=== PATIENT | male | born 1950 | race Caucasian/White ===

== ENCOUNTER 2018-09-22 06:51 | Day surgery (SDC) | payer MEDICARE ==
[~2018-09-22] VITALS: Ht 167.6 cm; Wt 85.7 kg
[2018-09-22] VITALS (16 sets, daily range): BP systolic 108–142; BP diastolic 60–74; PULSE 62–68; RESP 14–17; Ht 167.6 cm; Wt 85.7 kg
[2018-09-22] MEDS ORDERED: GLIM4TAB PO (07:31)
[2018-09-22] MEDS ORDERED: METF100010 PO (07:32)
[2018-09-22] MEDS ORDERED: ATOR20TA38 PO (07:32)
[2018-09-22] MEDS ORDERED: CARV25TA79 PO (07:33)
[2018-09-22] MEDS ORDERED: BENA40TA56 PO (07:33)
[2018-09-22] MEDS ORDERED: DAPA10TA PO (07:34)
[2018-09-22] MEDS ORDERED: GEMF600T8 PO (07:34)
[2018-09-22] MEDS ORDERED: ASPI81TA52 PO (07:34)
[2018-09-22] MEDS ORDERED: FAMOTIDINE 20 MG TAB PO SCH (08:00)
[2018-09-22] MEDS ORDERED: DIPHENHYDRAMINE 50 MG CAP PO SCH (08:00)
[2018-09-22] MEDS ORDERED: SOD CHLORIDE 0.45% 1,000 ML IV SCH (08:00)
[2018-09-22] MEDS ORDERED: DIAZEPAM 5 MG TAB PO SCH (08:00)
[2018-09-22] MEDS ORDERED: IODIXANOL LOCM 100 ML BTL ONE (09:05)
[2018-09-22] MEDS ORDERED: MIDAZOLAM 1 MG/ML 2 ML INJ ONE (09:05)
[2018-09-22] MEDS ORDERED: FENTAnyl 50 MCG/ML VIAL ONE (09:06)
[2018-09-22] MEDS ORDERED: SOD CHLORIDE 0.9% 500 ML ONE (11:08)
--- NOTE | 2018-09-22 11:19 | SIPON ---
Date/Time of Note Date/Time of Note DATE: 09/22/18 TIME: 11:18 Operative Report Preoperative Diagnosis 1.chest pain 2.cardiomyopathy 3.abnl mpi Postoperative Diagnosis 1.obstructive cad multivessel Operation/Procedure Performed 1.[facility] Surgeon see signature line social worker assistant Khoi Anesthesia: moderate sedation Estimated blood loss: minimal Transfusion Required none Specimen none Grafts/Implants none Complications none BUSTER COKER Sep 22, 2018 11:19
[2018-09-22] MEDS ORDERED: ONDANSETRON 4 MG INJ IV PRN (11:30)
[2018-09-22] MEDS ORDERED: morphine 2 MG INJ IV PRN (11:30)
[2018-09-22] MEDS ORDERED: ACETAMINOPHEN 325 MG TAB PO PRN (11:30)
[2018-09-22] MEDS ORDERED: AL HYDROX/MG HYDROX/SIMETH 30 ML CUP PO PRN (11:30)
[2018-09-22] MEDS ORDERED: SOD CHLORIDE 0.9% 1,000 ML IV SCH (12:30)
--- NOTE | 2018-09-22 16:01 | CARRPT ---
DATE OF PROCEDURE: 09/22/2018 TYPE OF PROCEDURES: 1. Left heart catheterization. 2. Coronary angiography. 3. Bypass graft angiography including RODARTE arterial graft. 4. Measurement of left ventricular end-diastolic pressure. 5. Aortic root angiography. 6. Femoral angiography. 7. Perclose closure device to right femoral artery. ATTENDING PHYSICIAN: Buster Melissa MD REFERRING PHYSICIAN: Guilherme Hernandez MD INDICATIONS: Chest pain, cardiomyopathy, severely depressed left ventricular ejection, history of CA BG, positive stress test findings. TYPE OF ANESTHESIA: Conscious local. BRIEF HISTORY AND HOSPITAL COURSE: Mr. Mo Brown is a 68-year-old male with a history of hyp ertension, dyslipidemia, coronary artery disease, status post coronary artery bypass graft surgery 20 years prior, history of stents, who presented with complaints of shortness of breath and was found t o have severely depressed left ventricular ejection fraction. The patient subsequently underwent car diac stress test revealing multivessel ischemia and the patient has now been thus referred for left h eart catheterization to assess the possibility of significant obstructive coronary artery disease sonya ding to symptoms of chest pain and subsequent positive stress test findings. DESCRIPTION OF PROCEDURE: After informed consent was obtained, the patient was brought to the [facility] cardiac catheterization lab where his right femoral artery was prepped and catherine ped in sterile fashion. A 2% lidocaine was infiltrated into the right femoral artery in order to ach ieve adequate anesthesia. Using the modified Seldinger technique, the right femoral artery was cannu lated and a 6-Indian arterial sheath was placed. A 6-Indian JL4 catheter was used to cannulate the l eft main coronary ostium. With contrast injection, multiple views of the left coronary arterial syst em were obtained. JL4 was removed over a guidewire and a JR4 was used to cannulate the right coronar y arterial ostium. With contrast injection, multiple views of the right coronary system was obtained . JR4 was then used to sequentially cannulate a saphenous vein graft to diagonal, saphenous vein gra ft stump presumed to LAD and then RODARTE as well as SARA. It was then removed and we used a multipurpo se to try and identify any further right graft unsuccessfully and then tried an LCB to identify any f urther grafts unsuccessfully. We then passed a pigtail in descending aorta into the ascending aorta placed in LV. LVEDP was measured and pullback across the aortic valve to assess for significant grad ient, which there was not and remained in the root. At this time, we did an aortic root angiography to further identify any evidence of further grafts which did not identify any further grafts and was removed. Subsequently, a right femoral arterial angiogram was obtained revealing the sheath to be we ll placed in the right common femoral artery and was removed. Subsequently, Perclose device was used to seal the vessel. This completed the procedure. There were no complications. FINDINGS: Left main is 4 mm, no significant focal stenoses. Circumflex proximally is a 3 mm vessel, has a long zone of occlusion up to approximately 90% and then target. It does appear to be in competitive flow in the distal portion of the vessel, not clear if this is from stump of graft as we are not able to identify an anterograde limb to this. The LAD proximally is a 3 mm vessel and has a long stented zone with appears to be likely 100% occluded with possible left collateral flow filling the distal LAD versus a 99% subtotally occluded. There is a proximal branching diagonal sub 2 mm ve ssel with an ostial 80% stenosis. The right coronary artery proximally is a 3.5 mm vessel and has a very focal 80% stenosis in its ostial portion. In midportion of vessel, there is another 60% to 70% stenosis. It is a dominant vessel and gives off a PDA, sub 2 mm vessel with diffuse disease up to ap proximately 70% to 80% in proximal portion and then a posterolateral branch 2 mm with a disease in pr oximal portion approximately 60%. Bypass graft angiography: This revealed the patient to have a widely patent saphenous vein graft sup plying the diagonal and stump presumably to the circumflex system. The patient's RODARTE was injected a nd does not appear to be anastomosed anything. It appears small, atretic appearing, although it does follow some clips in line but not clearly sutured to any vessel. The SARA was a very sizable vessel not used as a previous conduit. Femoral angiography revealed the patient's sheath to be well placed in the right common femoral arter y with no significant peripheral vascular disease there. TOTAL FLUOROSCOPY TIME: 18.8 minutes. TOTAL CONTRAST: 230 mL. IMPRESSION: 1. Multivessel obstructive coronary artery disease involving chronic occlusion of the LAD versus 99% subtotal occlusion, high-grade stenoses diffusely throughout the circumflex and high grade proximal and mid stenoses in the right coronary artery as well as diffuse disease in PDA. 2. High normal left heart filling pressures of 14 to 18. 3. No significant aortic stenosis by gradient. RECOMMENDATIONS: 1. In light of procedure findings at this time and not finding any arterial conduits that have been used, I will leave the patient and can be referred for possible repeat bypass surgery versus high ris k multivessel PCI if found not to be a strong candidate. 2. Maximize medical management. 3. Aggressive risk factor reduction. 4. The patient will be readmitted to same day surgery for post-catheterization for cardiothoracic hodge rgical consultation if possible. Dictated By: BUSTER HERNANDEZ/ALISE Conf#: [id number] DID#: [id number]
--- NOTE | 2018-09-25 18:13 | RADRPT ---
Vent Rate: 66 bpm RR Interval: 0 msec CO Interval: 212 msec QRS Duration: 106 msec QT Interval: 380 msec QTC Interval: 398 msec P-R-T Bono: 36 - -14 - 128 degrees Sinus rhythm with 1st degree AV block Anteroseptal infarct , age undetermined T wave abnormality, consider lateral ischemia Abnormal ECG Electronically Signed By: Wilman Tyler
== END 2018-09-22 17:20 | disposition home or self-care (01) ==
LOC: SDS 06:51
PROVIDERS: ATTEND Internal Medicine
DX: I42.9 Cardiomyopathy, unspecified (principal); I35.0 Nonrheumatic aortic (valve) stenosis; I10 Essential (primary) hypertension; E11.9 Type 2 diabetes mellitus without complications; I25.10 Atherosclerotic heart disease of native coronary artery without angina pectoris; E78.00 Pure hypercholesterolemia, unspecified; I49.9 Cardiac arrhythmia, unspecified
CPT/HCPCS: 71045; 80048; 80061; 82962; 85025; 85610; 85730; 93005; 93459; C1760; C1887; C1894; J1644; J2250; J3010; J7040; Q9967